=== PATIENT | male | born 1980 | race Caucasian/White ===

== ENCOUNTER 2023-03-11 17:04 | Outpatient (CLI) | payer MEDICAID, SELFPAY | END 2023-03-11 17:05 | disposition home or self-care (01) | LOC: AMB 03-13 10:32 | PROVIDERS: Visit Provider Family Medicine | DX: E11.649 Type 2 diabetes mellitus with hypoglycemia without coma (principal); R22.40 Localized swelling, mass and lump, unspecified lower limb | CPT/HCPCS: A0425; A0429 ==

== ENCOUNTER 2023-03-11 17:49 | Emergency (ER) | payer MEDICAID, SELFPAY ==
[2023-03-11] VITALS (42 sets, daily range): BP systolic 99–135; BP diastolic 32–55; PULSE 88–103; RESP 20; TEMP 36.6; O2SAT 97–100; BMI 70.6
--- NOTE | 2023-03-11 18:13 | ED_ITS ---
HPI - General Adult General Chief complaint: Extremity Pain/Injury, Lower <Imer Rodgers MD - Last Filed: 04/01/23 13:38> Stated complaint: swelling of legs <Imer Rodgers MD - Last Filed: 04/01/23 13:38> Time Seen by Provider: 03/11/23 18:13 <Imer Rodgers MD - Last Filed: 04/01/23 13:38> History of Present Illness HPI narrative: hx of fall today outside with bruise to L forearm, pt brought in by ems though due to mother c/o blood clot. pt has R lower extremity pain, redness, swelling x 1 month , worse the last 2 days . blood sugar was for ems, juice box given 43-year-old man presenting to the emergency department after a fall. Primary concern however seems to be marked increase in swelling over the last couple of days in the right lower extremity. He was helping his mom with some groceries today and over some unsteady grassy ground caused him to fall. Does not sounds are was a loss of consciousness. No complaint of head pain. No back or neck pain the from this event. Has had lower extremity swelling for some time. Over the last month of though it sounds like the right lower extremity has been little red and then worsened over the last couple of days with increased pain. He is not feeling short of breath. No chest pain. No fever. Does not typically use compression. <Imer Rodgers MD - Last Filed: 04/01/23 13:38> Related Data Home medications: Home Medications Medication Instructions Recorded Confirmed No Known Home Medications 03/11/23 03/11/23 <Imer Rodgers MD - Last Filed: 04/01/23 13:38> Allergies/adverse reactions: Allergies Allergy/AdvReac Type Severity Reaction Status Date / Time naproxen [From Aleve] Allergy Intermediate Verified 03/11/23 17:59 <Imer Rodgers MD - Last Filed: 04/01/23 13:38> Review of Systems Status of ROS: Reports: 6 or more systems reviewed and unremarkable except as noted in History and below <Imer Rodgers MD - Last Filed: 04/01/23 13:38> [facility] Medical History: Medical History (Updated 03/27/23 @ 00:00 by Background Daemon) Chronic kidney disease ?N18.9 - Chronic kidney disease, unspecified (ICD-10) Morbid obesity ?E66.01 - Morbid (severe) obesity due to excess calories (ICD-10) <Imer Rodgers MD - Last Filed: 04/01/23 13:38> Family History: Family History (Updated 03/12/23 @ 00:08 by Christoph Martin MD) Father Coronary artery disease Mother Diabetes Other Alcohol dependence <Imer Rodgers MD - Last Filed: 04/01/23 13:38> Social History: Social History (Updated 03/12/23 @ 00:09 by Christoph Martin MD) Narrative: Patient reports being currently unemployed. 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 He does not smoke. He rarely drinks alcohol. He does not use recreational drugs. [employer] is his mother. Code status is full. Smoking Status: Never smoker How often do you have a drink containing alcohol: never AUDIT-C Alcohol total score: 0 Non-prescribed substance use: denies use <Imer Rodgers MD - Last Filed: 04/01/23 13:38> Exam Narrative: Exam Narrative: Very pleasant. NAD. Maybe seems mildly anxious. Breathing easily. Fully alert. Cranial nerves 2-12 intact. Morbidly obese. There is of light abrasion at the olecranon process of the right elbow. Not actively bleeding. He is moving his upper extremities without difficulty. There is a quarter-size bruise also on the proximal forearm on the left. No p articular tenderness here either. Heart is tachycardic, regular rhythm. There appears to be a 1/6 mid systolic murmur notable at the right sternal border. He has not recall a murmur prior. Abdomen is obese soft not appreciably tender. I could not be sure that there are no masses but do not palpate anything. Examining again I see more edema and erythema and mild calor the left abdomen/pannus. There is not appear to be intertrigo. Lower extremities with severe edema bilaterally. Right is appreciably much more than the left with erythema diffusely over the right lower extremity. Posterior medial right upper thigh is starting to show subtle signs of evolving tension blister? Is tender to palpation over the proximal lower leg into the thigh. Mild calor generally <Imer Rodgers MD - Last Filed: 04/01/23 13:38> Const: Vital Signs, click to edit/add: Vital Signs - 24 hr 03/11/23 17:53 03/11/23 18:35 03/11/23 18:36 Temperature 97.9 F Pulse Rate 93 92 Pulse Rate [Pulse Oximeter] 102 H Respiratory Rate 20 Blood Pressure 108/37 L Blood Pressure [Ri ght Upper Arm] 135/45 L Pulse Oximetry 99 100 99 Oxygen Delivery Me thod Room Air 03/11/23 18:45 03/11/23 19:12 03/11/23 19:15 Temperature Pulse Rate 94 93 92 Pulse Rate [Pulse Oximeter] Respiratory Rate Blood Pressure Blood Pressure [Ri ght Upper Arm] Pulse Oximetry 100 100 99 Oxygen Delivery Me thod 03/11/23 19:30 03/11/23 19:33 03/11/23 19:45 Temperature Pulse Rate 90 93 88 Pulse Rate [Pulse Oximeter] Respiratory Rate Blood Pressure 113/36 L Blood Pressure [Ri ght Upper Arm] Pulse Oximetry 100 98 99 Oxygen Delivery Me thod 03/11/23 20:00 03/11/23 20:03 03/11/23 20:15 Temperature Pulse Rate 93 93 91 Pulse Rate [Pulse Oximeter] Respiratory Rate Blood Pressure 114/39 L Blood Pressure [Ri ght Upper Arm] Pulse Oximetry 98 99 98 Oxygen Delivery Me thod 03/11/23 20:30 03/11/23 20:32 03/11/23 20:45 Temperature Pulse Rate 91 91 96 Pulse Rate [Pulse Oximeter] Respiratory Rate Blood Pressure 111/33 L Blood Pressure [Ri ght Upper Arm] Pulse Oximetry 99 99 98 Oxygen Delivery Me thod 03/11/23 21:03 03/11/23 21:04 03/11/23 21:06 Temperature Pulse Rate 94 94 93 Pulse Rate [Pulse Oximeter] Respiratory Rate Blood Pressure 117/34 L 99/40 L Blood Pressure [Ri ght Upper Arm] Pulse Oximetry 98 99 99 Oxygen Delivery Me thod 03/11/23 21:09 03/11/23 21:13 03/11/23 21:15 Temperature Pulse Rate 97 98 94 Pulse Rate [Pulse Oximeter] Respiratory Rate Blood Pressure 101/34 L 108/40 L Blood Pressure [Ri ght Upper Arm] Pulse Oximetry 100 99 99 Oxygen Delivery Me thod 03/11/23 21:16 03/11/23 21:35 03/11/23 21:40 Temperature Pulse Rate 94 103 H Pulse Rate [Pulse Oximeter] Respiratory Rate Blood Pressure 108/34 L 131/55 L Blood Pressure [Ri ght Upper Arm] Pulse Oximetry 99 99 Oxygen Delivery Me thod 03/11/23 21:45 03/11/23 21:48 03/11/23 22:11 Temperature Pulse Rate 99 96 94 Pulse Rate [Pulse Oximeter] Respiratory Rate Blood Pressure 135/46 L Blood Pressure [Ri ght Upper Arm] Pulse Oximetry 100 99 98 Oxygen Delivery Me thod 03/11/23 22:15 03/11/23 22:20 03/11/23 22:30 Temperature Pulse Rate 97 95 93 Pulse Rate [Pulse Oximeter] Respiratory Rate Blood Pressure 104/40 L Blood Pressure [Ri ght Upper Arm] Pulse Oximetry 97 98 99 Oxygen Delivery Me thod 03/11/23 22:32 03/11/23 22:45 03/11/23 22:48 Temperature Pulse Rate 92 91 92 Pulse Rate [Pulse Oximeter] Respiratory Rate Blood Pressure 103/32 L 114/38 L Blood Pressure [Ri ght Upper Arm] Pulse Oximetry 99 98 99 Oxygen Delivery Me thod 03/11/23 23:00 03/11/23 23:03 03/11/23 23:04 Temperature Pulse Rate 93 96 95 Pulse Rate [Pulse Oximeter] Respiratory Rate Blood Pressure 115/36 L Blood Pressure [Ri ght Upper Arm] Pulse Oximetry 100 99 100 Oxygen Delivery Me thod 03/11/23 23:15 03/11/23 23:18 03/11/23 23:30 Temperature Pulse Rate 96 97 95 Pulse Rate [Pulse Oximeter] Respiratory Rate Blood Pressure 111/38 L Blood Pressure [Ri ght Upper Arm] Pulse Oximetry 100 97 98 Oxygen Delivery Me thod 03/11/23 23:33 03/11/23 23:45 03/11/23 23:48 Temperature Pulse Rate 98 95 97 Pulse Rate [Pulse Oximeter] Respiratory Rate Blood Pressure 127/44 L 104/36 L Blood Pressure [Ri ght Upper Arm] Pulse Oximetry 98 99 100 Oxygen Delivery Me thod 03/12/23 00:00 03/12/23 00:02 03/12/23 00:02 Temperature Pulse Rate 97 95 95 Pulse Rate [Pulse Oximeter] Respiratory Rate Blood Pressure 125/41 L 125/41 L Blood Pressure [Ri ght Upper Arm] Pulse Oximetry 99 98 98 Oxygen Delivery Me thod 03/12/23 00:02 03/12/23 00:02 03/12/23 00:15 Temperature Pulse Rate 95 95 94 Pulse Rate [Pulse Oximeter] Respiratory Rate Blood Pressure 125/41 L 125/41 L Blood Pressure [Ri ght Upper Arm] Pulse Oximetry 98 98 99 Oxygen Delivery Me thod 03/12/23 00:18 03/12/23 00:40 03/12/23 00:45 Temperature Pulse Rate 94 107 H 96 Pulse Rate [Pulse Oximeter] Respiratory Rate Blood Pressure 130/36 L Blood Pressure [Ri ght Upper Arm] Pulse Oximetry 98 96 99 Oxygen Delivery Me thod 03/12/23 00:48 03/12/23 01:00 03/12/23 01:03 Temperature Pulse Rate 96 93 97 Pulse Rate [Pulse Oximeter] Respiratory Rate Blood Pressure 133/47 L 108/43 L Blood Pressure [Ri ght Upper Arm] Pulse Oximetry 99 97 98 Oxygen Delivery Me thod 03/12/23 01:15 Temperature Pulse Rate 92 Pulse Rate [Pulse Oximeter] Respiratory Rate Blood Pressure Blood Pressure [Ri ght Upper Arm] Pulse Oximetry 98 Oxygen Delivery Me thod <Imer Rodgers MD - Last Filed: 04/01/23 13:38> Vital Signs, click to edit/add: Vital Signs - 24 hr 03/11/23 17:53 03/11/23 18:35 03/11/23 18:36 Temperature 97.9 F Pulse Rate 93 92 Pulse Rate [Pulse Oximeter] 102 H Respiratory Rate 20 Blood Pressure 108/37 L Blood Pressure [Ri ght Upper Arm] 135/45 L Pulse Oximetry 99 100 99 Oxygen Delivery Me thod Room Air 03/11/23 18:45 03/11/23 19:12 03/11/23 19:15 Temperature Pulse Rate 94 93 92 Pulse Rate [Pulse Oximeter] Respiratory Rate Blood Pressure Blood Pressure [Ri ght Upper Arm] Pulse Oximetry 100 100 99 Oxygen Delivery Me thod 03/11/23 19:30 03/11/23 19:33 03/11/23 19:45 Temperature Pulse Rate 90 93 88 Pulse Rate [Pulse Oximeter] Respiratory Rate Blood Pressure 113/36 L Blood Pressure [Ri ght Upper Arm] Pulse Oximetry 100 98 99 Oxygen Delivery Me thod 03/11/23 20:00 03/11/23 20:03 03/11/23 20:15 Temperature Pulse Rate 93 93 91 Pulse Rate [Pulse Oximeter] Respiratory Rate Blood Pressure 114/39 L Blood Pressure [Ri ght Upper Arm] Pulse Oximetry 98 99 98 Oxygen Delivery Me thod 03/11/23 20:30 03/11/23 20:32 03/11/23 20:45 Temperature Pulse Rate 91 91 96 Pulse Rate [Pulse Oximeter] Respiratory Rate Blood Pressure 111/33 L Blood Pressure [Ri ght Upper Arm] Pulse Oximetry 99 99 98 Oxygen Delivery Me thod 03/11/23 21:03 03/11/23 21:04 03/11/23 21:06 Temperature Pulse Rate 94 94 93 Pulse Rate [Pulse Oximeter] Respiratory Rate Blood Pressure 117/34 L 99/40 L Blood Pressure [Ri ght Upper Arm] Pulse Oximetry 98 99 99 Oxygen Delivery Me thod 03/11/23 21:09 03/11/23 21:13 03/11/23 21:15 Temperature Pulse Rate 97 98 94 Pulse Rate [Pulse Oximeter] Respiratory Rate Blood Pressure 101/34 L 108/40 L Blood Pressure [Ri ght Upper Arm] Pulse Oximetry 100 99 99 Oxygen Delivery Me thod 03/11/23 21:16 03/11/23 21:35 03/11/23 21:40 Temperature Pulse Rate 94 103 H Pulse Rate [Pulse Oximeter] Respiratory Rate Blood Pressure 108/34 L 131/55 L Blood Pressure [Ri ght Upper Arm] Pulse Oximetry 99 99 Oxygen Delivery Me thod 03/11/23 21:45 03/11/23 21:48 03/11/23 22:11 Temperature Pulse Rate 99 96 94 Pulse Rate [Pulse Oximeter] Respiratory Rate Blood Pressure 135/46 L Blood Pressure [Ri ght Upper Arm] Pulse Oximetry 100 99 98 Oxygen Delivery Me thod 03/11/23 22:15 03/11/23 22:20 03/11/23 22:30 Temperature Pulse Rate 97 95 93 Pulse Rate [Pulse Oximeter] Respiratory Rate Blood Pressure 104/40 L Blood Pressure [Ri ght Upper Arm] Pulse Oximetry 97 98 99 Oxygen Delivery Me thod 03/11/23 22:32 03/11/23 22:45 03/11/23 22:48 Temperature Pulse Rate 92 91 92 Pulse Rate [Pulse Oximeter] Respiratory Rate Blood Pressure 103/32 L 114/38 L Blood Pressure [Ri ght Upper Arm] Pulse Oximetry 99 98 99 Oxygen Delivery Me thod 03/11/23 23:00 03/11/23 23:03 03/11/23 23:04 Temperature Pulse Rate 93 96 95 Pulse Rate [Pulse Oximeter] Respiratory Rate Blood Pressure 115/36 L Blood Pressure [Ri ght Upper Arm] Pulse Oximetry 100 99 100 Oxygen Delivery Me thod 03/11/23 23:15 03/11/23 23:18 03/11/23 23:30 Temperature Pulse Rate 96 97 95 Pulse Rate [Pulse Oximeter] Respiratory Rate Blood Pressure 111/38 L Blood Pressure [Ri ght Upper Arm] Pulse Oximetry 100 97 98 Oxygen Delivery Me thod 03/11/23 23:33 03/11/23 23:45 03/11/23 23:48 Temperature Pulse Rate 98 95 97 Pulse Rate [Pulse Oximeter] Respiratory Rate Blood Pressure 127/44 L 104/36 L Blood Pressure [Ri ght Upper Arm] Pulse Oximetry 98 99 100 Oxygen Delivery Me thod 03/12/23 00:00 03/12/23 00:02 03/12/23 00:02 Temperature Pulse Rate 97 95 95 Pulse Rate [Pulse Oximeter] Respiratory Rate Blood Pressure 125/41 L 125/41 L Blood Pressure [Ri ght Upper Arm] Pulse Oximetry 99 98 98 Oxygen Delivery Me thod 03/12/23 00:02 03/12/23 00:02 03/12/23 00:15 Temperature Pulse Rate 95 95 94 Pulse Rate [Pulse Oximeter] Respiratory Rate Blood Pressure 125/41 L 125/41 L Blood Pressure [Ri ght Upper Arm] Pulse Oximetry 98 98 99 Oxygen Delivery Me thod 03/12/23 00:18 03/12/23 00:40 03/12/23 00:45 Temperature Pulse Rate 94 107 H 96 Pulse Rate [Pulse Oximeter] Respiratory Rate Blood Pressure 130/36 L Blood Pressure [Ri ght Upper Arm] Pulse Oximetry 98 96 99 Oxygen Delivery Me thod 03/12/23 00:48 03/12/23 01:00 03/12/23 01:03 Temperature Pulse Rate 96 93 97 Pulse Rate [Pulse Oximeter] Respiratory Rate Blood Pressure 133/47 L 108/43 L Blood Pressure [Ri ght Upper Arm] Pulse Oximetry 99 97 98 Oxygen Delivery Me thod 03/12/23 01:15 Temperature Pulse Rate 92 Pulse Rate [Pulse Oximeter] Respiratory Rate Blood Pressure Blood Pressure [Ri ght Upper Arm] Pulse Oximetry 98 Oxygen Delivery Me thod <Constance Soliman MD - Last Filed: 03/12/23 03:13> Documenting provider has reviewed patient's vital signs: yes <Imer Rodgers MD - Last Filed: 04/01/23 13:38> Course Reevaluation(s) Time of Reevaluation #1: 03:10 <Constance Soliman MD - Last Filed: 03/12/23 03:13> Reevaluation #1: Transferred without complication to [facility] ICU. No changes to plan of care previously documented by Dr. Martinez. Care assumed while awaiting transfer only. - Dr. Soliman <Constance Soliman MD - Last Filed: 03/12/23 03:13> Vital Signs Vital signs: Initial Vital Signs Temperature 97.9 F 03/11/23 17:53 Temperature Source Temporal Artery Scan 03/11/23 17:53 Pulse Rate 102 H 03/11/23 17:53 Respiratory Rate 20 03/11/23 17:53 Blood Pressure 135/45 L 03/11/23 17:53 Blood Pressure Mean 75 03/11/23 17:53 Blood Pressure Position Supine 03/11/23 17:53 Pulse Oximetry 99 03/11/23 17:53 Oxygen Delivery Method Room Air 03/11/23 17:53 Vital Signs Temperature 97.9 F 03/11/23 17:53 Pulse Rate 102 H 03/11/23 17:53 Respiratory Rate 20 03/11/23 17:53 Blood Pressure 135/45 L 03/11/23 17:53 Pulse Oximetry 99 03/11/23 17:53 Oxygen Delivery Method Room Air 03/11/23 17:53 Temperature 97.9 F 03/11/23 17:53 Pulse Rate 92 03/12/23 01:15 Respiratory Rate 20 03/11/23 17:53 Blood Pressure 108/43 L 03/12/23 01:03 Pulse Oximetry 98 03/12/23 01:15 Oxygen Delivery Method Room Air 03/11/23 17:53 <Imer Rodgers MD - Last Filed: 04/01/23 13:38> Initial Vital Signs Temperature 97.9 F 03/11/23 17:53 Temperature Source Temporal Artery Scan 03/11/23 17:53 Pulse Rate 102 H 03/11/23 17:53 Respiratory Rate 20 03/11/23 17:53 Blood Pressure 135/45 L 03/11/23 17:53 Blood Pressure Mean 75 03/11/23 17:53 Blood Pressure Position Supine 03/11/23 17:53 Pulse Oximetry 99 03/11/23 17:53 Oxygen Delivery Method Room Air 03/11/23 17:53 Vital Signs Temperature 97.9 F 03/11/23 17:53 Pulse Rate 102 H 03/11/23 17:53 Respiratory Rate 20 03/11/23 17:53 Blood Pressure 135/45 L 03/11/23 17:53 Pulse Oximetry 99 03/11/23 17:53 Oxygen Delivery Method Room Air 03/11/23 17:53 Temperature 97.9 F 03/11/23 17:53 Pulse Rate 92 03/12/23 01:15 Respiratory Rate 20 03/11/23 17:53 Blood Pressure 108/43 L 03/12/23 01:03 Pulse Oximetry 98 03/12/23 01:15 Oxygen Delivery Method Room Air 03/11/23 17:53 <Constance Soliman MD - Last Filed: 03/12/23 03:13> Medical Decision Making MDM Narrative Medical decision making narrative: Unclear of tachycardia is chronic and related to potentially body habitus or representing newer disease. There may be cellulitis here. Will need to be at least evaluated for thrombus in the right lower extremity. Does not seem as though any other imaging would be necessary for this fall today. Labs pending as well Initiating on normal saline. White count is just shy of 20,000. On reassessment is no longer tachycardic. Creatinine returns at 2.4. Sodium of 125. Glucose 53. Ultrasound of bilateral lower extremities are without evidence of DVT. Speaking to the fisher terrapin she also noted though significant edema in the skin of the right leg. Mr. Martin meets criteria for sepsis. Source I presume is cellulitis at this point. Possibly panniculitis. Blood cultures are pending. Will discuss with hospitalist antibiotic choice. I think we can actually focus this on likely skin source. Recheck blood pressures seem to be softening somewhat. Strangely low diastolic generally. Systolic has been consistently since 2nd measurement at around 108. Have changed cuff sizes as well. Antibiotics will be per sepsis protocol ProBNP at 1090. I would have some concern of cardiac reserve. Recheck blood sugar after crackers at 51. Given juice box. Quite alert. Seems comfortable. Eating more. Monitor closely. Anticipating admission here however concern is remain related to morbid obesity. Lactate after 1 L of fluids 8.6. Will also look for tertiary hospital. Dr. Martin has been involved in cares anticipating admission here due to lack of availability elsewhere. Continued concerning labs with elevated AST and elevated bilirubin. Elevated troponin. 2 L. Rechecking lactate and blood sugar. 2311 -- I have been speaking with Dr. Wang and has been accepted to [facility] on a wait. He likely will need cares in vascular clinic in the future. <Imer Rodgers MD - Last Filed: 04/01/23 13:38> Lab Data Lab results reviewed: Yes I reviewed the patient's lab results <Imer Rodgers MD - Last Filed: 04/01/23 13:38> Lab results narrative: Acute renal failure, marked leukocytosis, markedly elevated lactate, elevated absolute neutrophil count, hypoglycemia, elevated troponin and CPK consistent with sepsis. Repeat lactate did not improve significantly after 2 L of IV fluid, starting 3 L. <Constance Soliman MD - Last Filed: 03/12/23 03:13> Labs: Lab Results 03/11/23 03/11/23 03/11/23 Range/Units 19:00 19:00 21:20 WBC 19.82 H (4.50-11.00) K/uL RBC 3.66 L (4.30-5.90) m/uL Hgb 12.7 L (13.5-17.5) gm/dL Hct 39.2 (37.0-53.0) % MCV 107 H (80-100) fL MCH 35 H (26-34) pg MCHC 32 (32-36) gm/dL RDW Coeff of Nessa 15.3 (11.5-15.5) % Plt Count 116 L (140-440) K/uL Neut % (Auto) 84.2 H (42.0-72.0) % Lymph % (Auto) 7.8 L (20-44) % [place] % (Auto) 5.5 (0.0-11.0) % Eos % (Auto) 0.5 (0.0-7.0) % Baso % (Auto) 0.2 (0.0-3.0) % Neut # (Auto) 16.70 H (1.7-7.0) K/uL Lymph # (Auto) 1.50 (0.90-2.90) K/uL [place] # (Auto) 1.10 H (0.00-0.90) K/UL Eos # (Auto) 0.10 (0.00-0.50) K/uL Baso # (Auto) 0.00 (0.00-0.30) K/uL Abs Immat Gran (auto) 0.40 H (0.00-0.30) K/uL Imm/Tot Granulo (auto) 1.8 % D-Dimer Quant (PE/DVT) 3.69 H (0.00-0.50) ug/ml Sodium 125 L (135-149) mmol/L Potassium 4.3 (3.6-5.1) mmol/L Chloride 93 L (96-114) mmol/L Carbon Dioxide 13 L (20-32) mmol/L Anion Gap 19 H (7-15) mEq/L BUN 19 (5-24) mg/dL Creatinine 2.4 H (0.5-1.5) mg/dL Estimated Creat Clear 47.09 Estimated GFR 34 ml/min Glucose 53 L (60-115) mg/dL Hemoglobin A1c 5.15 (0-5.6) % Lactate 8.6 H* (0.5-1.9) mmol/L Calcium 7.7 L (8.4-10.6) mg/dL Magnesium 1.7 (1.5-2.6) mg/dL Total Bilirubin 9.1 H (0.1-1.5) mg/dL Direct Bilirubin 5.3 H (0.0-0.5) mg/dL AST 141 H (12-35) U/L ALT 49 (4-50) U/L Alkaline Phosphatase 179 H (40-150) U/L Total Creatine Kinase 641 H (54-186) U/L Troponin I 0.34 H* (0.01-0.04) ng/mL C-Reactive Protein 8.4 H (0.5-1.0) mg/dL NT-Pro-B Natriuret Pep 1090 Cancelled pg/mL Total Protein 6.6 (6.0-8.3) g/dL Albumin 2.4 L (3.3-5.0) g/dL Procalcitonin 4.14 H (<0.50) ng/mL Urine Color (Yellow) Urine Appearance (Clear) Urine pH (5.0-8.5) Ur Specific [place] (1.000-1.030) Urine Protein (Negative) Urine Glucose (UA) (Negative) Urine Ketones (Negative) Urine Blood (Negative) Urine Nitrite (Negative) Urine Bilirubin (Negative) Urine Urobilinogen (0.2-1.0) Ur Leukocyte Esterase (Negative) Urine RBC (0-2) Urine WBC (0-5) Ur Squamous Epith Cells (None-Few) Amorphous Sediment (None) Urine Bacteria (None) Hyaline Casts (None-Few) Lab Acknowledgement 03/11/23 03/11/23 03/11/23 Range/Units 21:34 22:22 22:53 WBC (4.50-11.00) K/uL RBC (4.30-5.90) m/uL Hgb (13.5-17.5) gm/dL Hct (37.0-53.0) % MCV (80-100) fL MCH (26-34) pg MCHC (32-36) gm/dL RDW Coeff of Nessa (11.5-15.5) % Plt Count (140-440) K/uL Neut % (Auto) (42.0-72.0) % Lymph % (Auto) (20-44) % [place] % (Auto) (0.0-11.0) % Eos % (Auto) (0.0-7.0) % Baso % (Auto) (0.0-3.0) % Neut # (Auto) (1.7-7.0) K/uL Lymph # (Auto) (0.90-2.90) K/uL [place] # (Auto) (0.00-0.90) K/UL Eos # (Auto) (0.00-0.50) K/uL Baso # (Auto) (0.00-0.30) K/uL Abs Immat Gran (auto) (0.00-0.30) K/uL Imm/Tot Granulo (auto) % D-Dimer Quant (PE/DVT) (0.00-0.50) ug/ml Sodium (135-149) mmol/L Potassium (3.6-5.1) mmol/L Chloride (96-114) mmol/L Carbon Dioxide (20-32) mmol/L Anion Gap (7-15) mEq/L BUN (5-24) mg/dL Creatinine (0.5-1.5) mg/dL Estimated Creat Clear Estimated GFR ml/min Glucose (60-115) mg/dL Hemoglobin A1c (0-5.6) % Lactate (0.5-1.9) mmol/L Calcium (8.4-10.6) mg/dL Magnesium (1.5-2.6) mg/dL Total Bilirubin (0.1-1.5) mg/dL Direct Bilirubin (0.0-0.5) mg/dL AST (12-35) U/L ALT (4-50) U/L Alkaline Phosphatase (40-150) U/L Total Creatine Kinase (54-186) U/L Troponin I (0.01-0.04) ng/mL C-Reactive Protein (0.5-1.0) mg/dL NT-Pro-B Natriuret Pep pg/mL Total Protein (6.0-8.3) g/dL Albumin (3.3-5.0) g/dL Procalcitonin (<0.50) ng/mL Urine Color Red A (Yellow) Urine Appearance Slightly Cloudy A (Clear) Urine pH 5.0 (5.0-8.5) Ur Specific [place] >= 1.030 (1.000-1.030) Urine Protein 2+ A (Negative) Urine Glucose (UA) Negative (Negative) Urine Ketones Trace A (Negative) Urine Blood Trace-lysed A (Negative) Urine Nitrite Negative (Negative) Urine Bilirubin 3+ A (Negative) Urine Urobilinogen 1.0 (0.2-1.0) Ur Leukocyte Esterase Negative (Negative) Urine RBC 2-5 A (0-2) Urine WBC 5-10 A (0-5) Ur Squamous Epith Cells Many A (None-Few) Amorphous Sediment Moderate A (None) Urine Bacteria Many A (None) Hyaline Casts Many A (None-Few) Lab Acknowledgement Test Added Test Added 03/12/23 Range/Units 00:20 WBC (4.50-11.00) K/uL RBC (4.30-5.90) m/uL Hgb (13.5-17.5) gm/dL Hct (37.0-53.0) % MCV (80-100) fL MCH (26-34) pg MCHC (32-36) gm/dL RDW Coeff of Nessa (11.5-15.5) % Plt Count (140-440) K/uL Neut % (Auto) (42.0-72.0) % Lymph % (Auto) (20-44) % [place] % (Auto) (0.0-11.0) % Eos % (Auto) (0.0-7.0) % Baso % (Auto) (0.0-3.0) % Neut # (Auto) (1.7-7.0) K/uL Lymph # (Auto) (0.90-2.90) K/uL [place] # (Auto) (0.00-0.90) K/UL Eos # (Auto) (0.00-0.50) K/uL Baso # (Auto) (0.00-0.30) K/uL Abs Immat Gran (auto) (0.00-0.30) K/uL Imm/Tot Granulo (auto) % D-Dimer Quant (PE/DVT) (0.00-0.50) ug/ml Sodium (135-149) mmol/L Potassium (3.6-5.1) mmol/L Chloride (96-114) mmol/L Carbon Dioxide (20-32) mmol/L Anion Gap (7-15) mEq/L BUN (5-24) mg/dL Creatinine (0.5-1.5) mg/dL Estimated Creat Clear Estimated GFR ml/min Glucose (60-115) mg/dL Hemoglobin A1c (0-5.6) % Lactate 8.6 H* (0.5-1.9) mmol/L Calcium (8.4-10.6) mg/dL Magnesium (1.5-2.6) mg/dL Total Bilirubin (0.1-1.5) mg/dL Direct Bilirubin (0.0-0.5) mg/dL AST (12-35) U/L ALT (4-50) U/L Alkaline Phosphatase (40-150) U/L Total Creatine Kinase (54-186) U/L Troponin I (0.01-0.04) ng/mL C-Reactive Protein (0.5-1.0) mg/dL NT-Pro-B Natriuret Pep pg/mL Total Protein (6.0-8.3) g/dL Albumin (3.3-5.0) g/dL Procalcitonin (<0.50) ng/mL Urine Color (Yellow) Urine Appearance (Clear) Urine pH (5.0-8.5) Ur Specific [place] (1.000-1.030) Urine Protein (Negative) Urine Glucose (UA) (Negative) Urine Ketones (Negative) Urine Blood (Negative) Urine Nitrite (Negative) Urine Bilirubin (Negative) Urine Urobilinogen (0.2-1.0) Ur Leukocyte Esterase (Negative) Urine RBC (0-2) Urine WBC (0-5) Ur Squamous Epith Cells (None-Few) Amorphous Sediment (None) Urine Bacteria (None) Hyaline Casts (None-Few) Lab Acknowledgement <Imer Rodgers MD - Last Filed: 04/01/23 13:38> Lab Results 03/11/23 03/11/23 03/11/23 Range/Units 19:00 19:00 21:20 WBC 19.82 H (4.50-11.00) K/uL RBC 3.66 L (4.30-5.90) m/uL Hgb 12.7 L (13.5-17.5) gm/dL Hct 39.2 (37.0-53.0) % MCV 107 H (80-100) fL MCH 35 H (26-34) pg MCHC 32 (32-36) gm/dL RDW Coeff of Nessa 15.3 (11.5-15.5) % Plt Count 116 L (140-440) K/uL Neut % (Auto) 84.2 H (42.0-72.0) % Lymph % (Auto) 7.8 L (20-44) % [place] % (Auto) 5.5 (0.0-11.0) % Eos % (Auto) 0.5 (0.0-7.0) % Baso % (Auto) 0.2 (0.0-3.0) % Neut # (Auto) 16.70 H (1.7-7.0) K/uL Lymph # (Auto) 1.50 (0.90-2.90) K/uL [place] # (Auto) 1.10 H (0.00-0.90) K/UL Eos # (Auto) 0.10 (0.00-0.50) K/uL Baso # (Auto) 0.00 (0.00-0.30) K/uL Abs Immat Gran (auto) 0.40 H (0.00-0.30) K/uL Imm/Tot Granulo (auto) 1.8 % D-Dimer Quant (PE/DVT) 3.69 H (0.00-0.50) ug/ml Sodium 125 L (135-149) mmol/L Potassium 4.3 (3.6-5.1) mmol/L Chloride 93 L (96-114) mmol/L Carbon Dioxide 13 L (20-32) mmol/L Anion Gap 19 H (7-15) mEq/L BUN 19 (5-24) mg/dL Creatinine 2.4 H (0.5-1.5) mg/dL Estimated Creat Clear 47.09 Estimated GFR 34 ml/min Glucose 53 L (60-115) mg/dL Hemoglobin A1c 5.15 (0-5.6) % Lactate 8.6 H* (0.5-1.9) mmol/L Calcium 7.7 L (8.4-10.6) mg/dL Magnesium 1.7 (1.5-2.6) mg/dL Total Bilirubin 9.1 H (0.1-1.5) mg/dL Direct Bilirubin 5.3 H (0.0-0.5) mg/dL AST 141 H (12-35) U/L ALT 49 (4-50) U/L Alkaline Phosphatase 179 H (40-150) U/L Total Creatine Kinase 641 H (54-186) U/L Troponin I 0.34 H* (0.01-0.04) ng/mL C-Reactive Protein 8.4 H (0.5-1.0) mg/dL NT-Pro-B Natriuret Pep 1090 Cancelled pg/mL Total Protein 6.6 (6.0-8.3) g/dL Albumin 2.4 L (3.3-5.0) g/dL Procalcitonin 4.14 H (<0.50) ng/mL Urine Color (Yellow) Urine Appearance (Clear) Urine pH (5.0-8.5) Ur Specific [place] (1.000-1.030) Urine Protein (Negative) Urine Glucose (UA) (Negative) Urine Ketones (Negative) Urine Blood (Negative) Urine Nitrite (Negative) Urine Bilirubin (Negative) Urine Urobilinogen (0.2-1.0) Ur Leukocyte Esterase (Negative) Urine RBC (0-2) Urine WBC (0-5) Ur Squamous Epith Cells (None-Few) Amorphous Sediment (None) Urine Bacteria (None) Hyaline Casts (None-Few) Lab Acknowledgement 03/11/23 03/11/23 03/11/23 Range/Units 21:34 22:22 22:53 WBC (4.50-11.00) K/uL RBC (4.30-5.90) m/uL Hgb (13.5-17.5) gm/dL Hct (37.0-53.0) % MCV (80-100) fL MCH (26-34) pg MCHC (32-36) gm/dL RDW Coeff of [place] (11.5-15.5) % Plt Count (140-440) K/uL Neut % (Auto) (42.0-72.0) % Lymph % (Auto) (20-44) % [place] % (Auto) (0.0-11.0) % Eos % (Auto) (0.0-7.0) % Baso % (Auto) (0.0-3.0) % Neut # (Auto) (1.7-7.0) K/uL Lymph # (Auto) (0.90-2.90) K/uL [place] # (Auto) (0.00-0.90) K/UL Eos # (Auto) (0.00-0.50) K/uL Baso # (Auto) (0.00-0.30) K/uL Abs Immat Gran (auto) (0.00-0.30) K/uL Imm/Tot Granulo (auto) % D-Dimer Quant (PE/DVT) (0.00-0.50) ug/ml Sodium (135-149) mmol/L Potassium (3.6-5.1) mmol/L Chloride (96-114) mmol/L Carbon Dioxide (20-32) mmol/L Anion Gap (7-15) mEq/L BUN (5-24) mg/dL Creatinine (0.5-1.5) mg/dL Estimated Creat Clear Estimated GFR ml/min Glucose (60-115) mg/dL Hemoglobin A1c (0-5.6) % Lactate (0.5-1.9) mmol/L Calcium (8.4-10.6) mg/dL Magnesium (1.5-2.6) mg/dL Total Bilirubin (0.1-1.5) mg/dL Direct Bilirubin (0.0-0.5) mg/dL AST (12-35) U/L ALT (4-50) U/L Alkaline Phosphatase (40-150) U/L Total Creatine Kinase (54-186) U/L Troponin I (0.01-0.04) ng/mL C-Reactive Protein (0.5-1.0) mg/dL NT-Pro-B Natriuret Pep pg/mL Total Protein (6.0-8.3) g/dL Albumin (3.3-5.0) g/dL Procalcitonin (<0.50) ng/mL Urine Color Red A (Yellow) Urine Appearance Slightly Cloudy A (Clear) Urine pH 5.0 (5.0-8.5) Ur Specific [place] >= 1.030 (1.000-1.030) Urine Protein 2+ A (Negative) Urine Glucose (UA) Negative (Negative) Urine Ketones Trace A (Negative) Urine Blood Trace-lysed A (Negative) Urine Nitrite Negative (Negative) Urine Bilirubin 3+ A (Negative) Urine Urobilinogen 1.0 (0.2-1.0) Ur Leukocyte Esterase Negative (Negative) Urine RBC 2-5 A (0-2) Urine WBC 5-10 A (0-5) Ur Squamous Epith Cells Many A (None-Few) Amorphous Sediment Moderate A (None) Urine Bacteria Many A (None) Hyaline Casts Many A (None-Few) Lab Acknowledgement Test Added Test Added 03/12/23 Range/Units 00:20 WBC (4.50-11.00) K/uL RBC (4.30-5.90) m/uL Hgb (13.5-17.5) gm/dL Hct (37.0-53.0) % MCV (80-100) fL MCH (26-34) pg MCHC (32-36) gm/dL RDW Coeff of [place] (11.5-15.5) % Plt Count (140-440) K/uL Neut % (Auto) (42.0-72.0) % Lymph % (Auto) (20-44) % [place] % (Auto) (0.0-11.0) % Eos % (Auto) (0.0-7.0) % Baso % (Auto) (0.0-3.0) % Neut # (Auto) (1.7-7.0) K/uL Lymph # (Auto) (0.90-2.90) K/uL [place] # (Auto) (0.00-0.90) K/UL Eos # (Auto) (0.00-0.50) K/uL Baso # (Auto) (0.00-0.30) K/uL Abs Immat Gran (auto) (0.00-0.30) K/uL Imm/Tot Granulo (auto) % D-Dimer Quant (PE/DVT) (0.00-0.50) ug/ml Sodium (135-149) mmol/L Potassium (3.6-5.1) mmol/L Chloride (96-114) mmol/L Carbon Dioxide (20-32) mmol/L Anion Gap (7-15) mEq/L BUN (5-24) mg/dL Creatinine (0.5-1.5) mg/dL Estimated Creat Clear Estimated GFR ml/min Glucose (60-115) mg/dL Hemoglobin A1c (0-5.6) % Lactate 8.6 H* (0.5-1.9) mmol/L Calcium (8.4-10.6) mg/dL Magnesium (1.5-2.6) mg/dL Total Bilirubin (0.1-1.5) mg/dL Direct Bilirubin (0.0-0.5) mg/dL AST (12-35) U/L ALT (4-50) U/L Alkaline Phosphatase (40-150) U/L Total Creatine Kinase (54-186) U/L Troponin I (0.01-0.04) ng/mL C-Reactive Protein (0.5-1.0) mg/dL NT-Pro-B Natriuret Pep pg/mL Total Protein (6.0-8.3) g/dL Albumin (3.3-5.0) g/dL Procalcitonin (<0.50) ng/mL Urine Color (Yellow) Urine Appearance (Clear) Urine pH (5.0-8.5) Ur Specific [place] (1.000-1.030) Urine Protein (Negative) Urine Glucose (UA) (Negative) Urine Ketones (Negative) Urine Blood (Negative) Urine Nitrite (Negative) Urine Bilirubin (Negative) Urine Urobilinogen (0.2-1.0) Ur Leukocyte Esterase (Negative) Urine RBC (0-2) Urine WBC (0-5) Ur Squamous Epith Cells (None-Few) Amorphous Sediment (None) Urine Bacteria (None) Hyaline Casts (None-Few) Lab Acknowledgement <Constance Soliman MD - Last Filed: 03/12/23 03:13> ECG Data Attestation: I personally reviewed and interpreted this ECG as follows: (EKG normal sinus rate of 87. Collected after some IV hydration.) <Imer Rodgers MD - Last Filed: 04/01/23 13:38> Critical Care Time Critical Care Time Critical Care Time: Yes Attestation: The patient required my highest level preparedness to intervene emergently and I personally spent this critical care time directly and personally managing the patient. This critical care time included: Obtaining a history; Examining the patient; Pulse oximetry; Ordering and reviewing of studies; Arranging urgent treatment with development of a management plan; Evaluation of patients response to treatment; Frequent reassessment discussions with other providers. This critical care time was performed to assess and manage the high probability of imminent life-threatening deterioration that could result in multiorgan failure. It was exclusive of separate billable procedures and treating other patients and teaching time. <Imer Rodgers MD - Last Filed: 04/01/23 13:38> Total Critical Care Time in Minutes: 75 <Imer Rodgers MD - Last Filed: 04/01/23 13:38> Discharge Plan Discharge Clinical Impression: Cellulitis, Sepsis <Imer Rodgers MD - Last Filed: 04/01/23 13:38> Patient Disposition: [facility] <Imer Rodgers MD - Last Filed: 04/01/23 13:38> Discharge Location: [facility] <Imer Rodgers MD - Last Filed: 04/01/23 13:38> Condition: Critical <Imer Rodgers MD - Last Filed: 04/01/23 13:38> Prescriptions: No Action No Known Home Medications <Imer Rodgers MD - Last Filed: 04/01/23 13:38> Stand Alone Forms: MyHealth Info Instructions <Imer Rodgers MD - Last Filed: 04/01/23 13:38>
--- NOTE | 2023-03-11 18:27 | CRLHL7_ITS ---
For Patients: As a result of the Century Cures Act, medical imaging exams and procedure reports are released immediately into your electronic medical record. You may view this report before your referring provider. If you have questions, please contact your health care provider. INDICATION: Leg pain and swelling. TECHNIQUE: Ultrasound venous duplex bilateral lower extremity. Compression venous exam was performed using rogers-scale, color Doppler, and spectral Doppler analysis. COMPARISON: None. FINDINGS: Deep veins: Sonographic imaging demonstrates the bilateral common femoral, deep femoral, superficial femoral, popliteal, posterior tibial, and peroneal veins to be fully compressible with normal color Doppler blood flow. Superficial veins: Greater saphenous veins are fully compressible. No popliteal cyst. IMPRESSION: No deep venous thrombosis in the evaluated veins of the bilateral lower extremities. Dictated by Miguel Fox MD @ 03/11/2023 8:30:52 PM (Electronically Signed)
[2023-03-11 19:22] LABS: Basophils Percent Auto 0.2 % (0.0-3.0); Eosinophils Percent Auto 0.5 % (0.0-7.0); Hematocrit 39.2 % (37.0-53.0); Hemoglobin* 12.7 gm/dL (13.5-17.5); Immature Granulocytes Pct Auto 1.8 %; Lymphocytes Percent Auto 7.8 % (20-44); Mean Corpuscular HGB Conc 32 gm/dL (32-36); Mean Corpuscular Hemoglobin 35 pg (26-34); Mean Corpuscular Volume 107 fL (80-100); Monocytes Percent Auto 5.5 % (0.0-11.0); Neutrophils Percent Auto 84.2 % (42.0-72.0); Platelet Count* 116 K/uL (140-440); RDW Coefficient of Variation % 15.3 % (11.5-15.5); Red Blood Count 3.66 m/uL (4.30-5.90); White Blood Count* 19.82 K/uL (4.50-11.00)
[2023-03-11 19:23] LABS: Slide Review Reflex No
[2023-03-11 19:29] LABS: D Dimer Quantitative* 3.69 ug/ml (0.00-0.50)
[2023-03-11 19:48] LABS: Potassium* 4.3 mmol/L (3.6-5.1); Sodium* 125 mmol/L (135-149)
[2023-03-11 19:49] LABS: Anion Gap 19 mEq/L (7-15); Blood Urea Nitrogen* 19 mg/dL (5-24); Calcium* 7.7 mg/dL (8.4-10.6); Carbon Dioxide* 13 mmol/L (20-32); Chloride* 93 mmol/L (96-114); Creatinine* 2.4 mg/dL (0.5-1.5); Est. Creatinine Clearance* 47.09; Estimated Glomerular Filt Rate 34 ml/min; Glucose* 53 mg/dL (60-115)
[2023-03-11] MEDS: 0.9 % SODIUM CHLORIDE 1000 ml 1,000 ML IV ×2 (19:59→21:42)
[2023-03-11 20:30] LABS: C Reactive Protein* 8.4 mg/dL (0.5-1.0)
[2023-03-11 20:32] LABS: NT Pro B Type NatriureticPept* 1090 pg/mL
[2023-03-11 21:34] LABS: Lactate* 8.6 mmol/L (0.5-1.9)
--- NOTE | 2023-03-11 21:37 | CRLHL7_ITS ---
For Patients: As a result of the Cures Act, medical imaging exams and procedure reports are released immediately into your electronic medical record. You may view this report before your referring provider. If you have questions, please contact your health care provider. INDICATION: Sepsis. TECHNIQUE: Chest 1 views. COMPARISON: None. FINDINGS: Cardiovascular and mediastinum: Cardiomediastinal silhouette is enlarged. Lungs and pleural spaces: Low lung volumes. Lungs are clear. No dense consolidations. No sign of pleural effusion. No pneumothorax. Bones and soft tissues: No significant findings. IMPRESSION: No acute cardiopulmonary process identified. Dictated by Anita Valle MD @ 03/11/2023 10:10:31 PM (Electronically Signed)
[2023-03-11] MEDS: lidocaine HCL 2 % JELLY (TOP) STERILE 6 ML UR (22:00)
[2023-03-11 22:21] LABS: Albumin* 2.4 g/dL (3.3-5.0)
[2023-03-11 22:24] LABS: Alanine Aminotransferase* 49 U/L (4-50); Alkaline Phosphatase* 179 U/L (40-150); Aspartate Amino Transferase* 141 U/L (12-35); Bilirubin Direct* 5.3 mg/dL (0.0-0.5); Bilirubin Total* 9.1 mg/dL (0.1-1.5); Magnesium* 1.7 mg/dL (1.5-2.6); Total Protein* 6.6 g/dL (6.0-8.3)
--- NOTE | 2023-03-11 22:27 | ED.NURSE ---
Blood sugar 62, hospitalist updated.
[2023-03-11 22:29] LABS: Hemoglobin A1C* 5.15 % (0-5.6)
[2023-03-11 22:32] LABS: Bilirubin Urine 3+ (Negative); Blood Urine Trace-lysed (Negative); Glucose Urine Negative (Negative); Ketones Urine Trace (Negative); Leukocyte Esterase Urine Negative (Negative); Nitrite Urine Negative (Negative); Protein Urine 2+ (Negative); Specific Gravity Urine >= 1.030 (1.000-1.030)
[2023-03-11] MEDS: 5 % DEXTROSE/0.9% SOD CHLORIDE 1,000 ML 500 ML IV (22:33)
[2023-03-11 22:37] LABS: Appearance Urine Slightly Cloudy (Clear); Color Urine Red (Yellow)
[2023-03-11 22:41] LABS: Procalcitonin* 4.14 ng/mL (<0.50)
[2023-03-11] MEDS: PIPERACILLIN/TAZOBACTAM 4.5 GM in 0.9 % SODIUM CHLORIDE Mini-bag 100 ML IVPB (22:45)
[2023-03-11] MEDS: HYDROCORTISONE SOD SUCCINATE 50 MG/ML inj 100 MG IVP (22:45)
[2023-03-11 23:00] LABS: Troponin I* 0.34 ng/mL (0.01-0.04)
[2023-03-11 23:01] LABS: Amorphous Sediment Urine Moderate; Bacteria Urine Many; Hyaline Casts Urine Many (None-Few); Squamous Epithelial Cell Urine Many (None-Few)
[2023-03-11 23:15] LABS: Creatine Kinase* 641 U/L (54-186)
[2023-03-12] VITALS (10 sets, daily range): BP systolic 108–133; BP diastolic 36–47; PULSE 92–107; O2SAT 96–99
--- NOTE | 2023-03-12 00:04 | PM.IMCN1 ---
Date of Consult Consult date: 03/11/23 Requesting Physician: Other (Emergency department) Primary Care Provider: Not a Local Provider Consult Narrative Reason for consult: Sepsis Narrative: Iván Martin is a 43 year old male with morbid obesity presented to the emergency department after falling at home and unable to get. He reports that he has not been feeling quite right for the last few days but denies any specific symptoms such as fever, cough, chest pain, shortness of breath, nausea, vomiting, abdominal pain, diarrhea, constipation, urinary problems. He has noted some swelling and discomfort in both legs, right more than left. He reports no medical problems other than his obesity. He has not had regular medical care. Reports no previous surgeries. No previous hospitalizations. He takes no medications except an occasional ibuprofen. He does not smoke. He rarely drinks alcohol. No recreational drug use. Review of Systems Narrative: Patient reports he has been generally doing well up until the last few days when he has noted that he just does not quite feel right and both legs but especially his right leg has been bothering him and more swollen. [facility] Medical History (Updated 03/12/23 @ 00:18 by Christoph Martin MD) Chronic kidney disease ?N18.9 - Chronic kidney disease, unspecified (ICD-10) Morbid obesity ?E66.01 - Morbid (severe) obesity due to excess calories (ICD-10) Family History (Updated 03/12/23 @ 00:08 by Christoph Martin MD) Father Coronary artery disease Mother Diabetes Other Alcohol dependence Social History (Updated 03/12/23 @ 00:09 by Christoph Martin MD) Narrative: Patient reports being currently unemployed. 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 He does not smoke. He rarely drinks alcohol. He does not use recreational drugs. Healthcare power of criminal attorney is his mother. Code status is full. Smoking Status: Never smoker How often do you have a drink containing alcohol: never AUDIT-C Alcohol total score: 0 Non-prescribed substance use: denies use Meds Home Medications and Allergies Home Medications Medication Instructions Recorded Confirmed Type No Known Home Medications 03/11/23 03/11/23 History Allergies Allergy/AdvReac Type Severity Reaction Status Date / Time naproxen [From Aleve] Allergy Intermediate Verified 03/11/23 17:59 Exam Narrative: Exam Narrative: He is alert and able to give his own history. Appears to have scleral icterus. Oropharynx with very small airway. Neck is supple. Due to obesity cannot appreciate jugular veins. Respirations are clear to auscultation. Cardiovascular: S1, S2, regular tachycardia. Distant heart sounds. Abdomen: Large abdominal pannus. Bowel sounds are present. Palpation shows no obvious focus of tenderness. Some erythema in the left intertriginous area under his pannus. Extremities with bilateral 4+ edema and erythema and warmth on the right leg from the thigh to the foot and no erythema or warmth on the left. Bilateral pedal pulses are present Const: Vital Signs, click to edit/add: Vital Signs - 24 hr 03/11/23 17:53 03/11/23 18:35 03/11/23 18:36 Temperature 97.9 F Pulse Rate 93 92 Pulse Rate [Pulse Oximeter] 102 H Respiratory Rate 20 Blood Pressure 108/37 L Blood Pressure [Ri ght Upper Arm] 135/45 L Pulse Oximetry 99 100 99 Oxygen Delivery Me thod Room Air 03/11/23 18:45 03/11/23 19:12 03/11/23 19:15 Temperature Pulse Rate 94 93 92 Pulse Rate [Pulse Oximeter] Respiratory Rate Blood Pressure Blood Pressure [Ri ght Upper Arm] Pulse Oximetry 100 100 99 Oxygen Delivery Me thod 03/11/23 19:30 03/11/23 19:33 03/11/23 19:45 Temperature Pulse Rate 90 93 88 Pulse Rate [Pulse Oximeter] Respiratory Rate Blood Pressure 113/36 L Blood Pressure [Ri ght Upper Arm] Pulse Oximetry 100 98 99 Oxygen Delivery Me thod 03/11/23 20:00 03/11/23 20:03 03/11/23 20:15 Temperature Pulse Rate 93 93 91 Pulse Rate [Pulse Oximeter] Respiratory Rate Blood Pressure 114/39 L Blood Pressure [Ri ght Upper Arm] Pulse Oximetry 98 99 98 Oxygen Delivery Me thod 03/11/23 20:30 03/11/23 20:32 03/11/23 20:45 Temperature Pulse Rate 91 91 96 Pulse Rate [Pulse Oximeter] Respiratory Rate Blood Pressure 111/33 L Blood Pressure [Ri ght Upper Arm] Pulse Oximetry 99 99 98 Oxygen Delivery Me thod 03/11/23 21:03 03/11/23 21:04 03/11/23 21:06 Temperature Pulse Rate 94 94 93 Pulse Rate [Pulse Oximeter] Respiratory Rate Blood Pressure 117/34 L 99/40 L Blood Pressure [Ri ght Upper Arm] Pulse Oximetry 98 99 99 Oxygen Delivery Me thod 03/11/23 21:09 03/11/23 21:13 03/11/23 21:15 Temperature Pulse Rate 97 98 94 Pulse Rate [Pulse Oximeter] Respiratory Rate Blood Pressure 101/34 L 108/40 L Blood Pressure [Ri ght Upper Arm] Pulse Oximetry 100 99 99 Oxygen Delivery Me thod 03/11/23 21:16 03/11/23 21:35 03/11/23 21:40 Temperature Pulse Rate 94 103 H Pulse Rate [Pulse Oximeter] Respiratory Rate Blood Pressure 108/34 L 131/55 L Blood Pressure [Ri ght Upper Arm] Pulse Oximetry 99 99 Oxygen Delivery Me thod 03/11/23 21:45 03/11/23 21:48 03/11/23 22:11 Temperature Pulse Rate 99 96 94 Pulse Rate [Pulse Oximeter] Respiratory Rate Blood Pressure 135/46 L Blood Pressure [Ri ght Upper Arm] Pulse Oximetry 100 99 98 Oxygen Delivery Me thod 03/11/23 22:15 03/11/23 22:20 03/11/23 22:30 Temperature Pulse Rate 97 95 93 Pulse Rate [Pulse Oximeter] Respiratory Rate Blood Pressure 104/40 L Blood Pressure [Ri ght Upper Arm] Pulse Oximetry 97 98 99 Oxygen Delivery Me thod 03/11/23 22:32 03/11/23 22:45 03/11/23 22:48 Temperature Pulse Rate 92 91 92 Pulse Rate [Pulse Oximeter] Respiratory Rate Blood Pressure 103/32 L 114/38 L Blood Pressure [Ri ght Upper Arm] Pulse Oximetry 99 98 99 Oxygen Delivery Me thod 03/11/23 23:00 03/11/23 23:03 Temperature Pulse Rate 93 96 Pulse Rate [Pulse Oximeter] Respiratory Rate Blood Pressure 115/36 L Blood Pressure [Ri ght Upper Arm] Pulse Oximetry 100 99 Oxygen Delivery Me thod Documenting provider has reviewed patient's vital signs: yes Labs Labs: Short CBC 03/11/23 Range/Units 19:00 WBC 19.82 H (4.50-11.00) K/uL Hgb 12.7 L (13.5-17.5) gm/dL Hct 39.2 (37.0-53.0) % Plt Count 116 L (140-440) K/uL BMP 03/11/23 19:00 Sodium 125 L Potassium 4.3 Chloride 93 L Carbon Dioxide 13 L BUN 19 Creatinine 2.4 H Glucose 53 L Calcium 7.7 L Cardiac Enzymes 03/11/23 Range/Units 19:00 Total Creatine Kinase 641 H (54-186) U/L Troponin I 0.34 H* (0.01-0.04) ng/mL Liver Function 03/11/23 Range/Units 19:00 Total Bilirubin 9.1 H (0.1-1.5) mg/dL Direct Bilirubin 5.3 H (0.0-0.5) mg/dL AST 141 H (12-35) U/L ALT 49 (4-50) U/L Alkaline Phosphatase 179 H (40-150) U/L Albumin 2.4 L (3.3-5.0) g/dL Urine 03/11/23 Range/Units 22:22 Urine Color Red A (Yellow) Urine Appearance Slightly Cloudy A (Clear) Urine pH 5.0 (5.0-8.5) Ur Specific [place] >= 1.030 (1.000-1.030) Urine Protein 2+ A (Negative) Urine Glucose (UA) Negative (Negative) Assessment and Plan Assessment and plan (1) Sepsis: Problem comment: Continuing hypotension after 3 L of fluid. Suspect this is due to infection, probably cellulitis of the right leg Status: Acute (2) Cellulitis: Problem comment: Appears to have cellulitis of the right leg. Ultrasound showed no DVT Status: Acute (3) Morbid obesity: Problem comment: Patient has not been weighed for more than 20 years. ER weight is an estimate from 1998. Status: Acute (4) Jaundice: Problem comment: Elevated bilirubin. Cause possibly sepsis verses primary hepatobiliary disease. Status: Acute (5) Chronic kidney disease: Problem comment: Creatinine 2.4. Unknown how chronic this is. Possibly acute kidney injury due to sepsis Status: Acute (6) Elevated troponin: Problem comment: Elevated troponin more likely due to sepsis than acute coronary syndrome. Demand ischemia most likely. Status: Acute (7) Hypoglycemia: Problem comment: Cause for hypoglycemia is possibly sepsis or adrenal insufficiency or both. Status: Acute (8) Hyponatremia: Problem comment: Due to sepsis, adrenal insufficiency and a large amount of recent free water intake. Status: Acute Plan Patient is seen in the emergency department for evaluation for admission for sepsis likely due to leg cellulitis as well as multiple other comorbid conditions. Consultation is provided today to advise on emergency management as well as decision about admission. Patient is administered IV fluids including dextrose containing fluids due to hypo glycemia. His pressure improves. Hydrocortisone is administered. Antibiotics are initiated. Due to multiorgan involvement and morbid obesity with potential for severe complications including septic shock requiring pressors I recommend patient be transferred to tertiary care. If unable to transfer due to no beds being available will attempt to manage his critical illness here in [facility] pending in open bed. Total time spent today is 90 minutes in critical care evaluation and treatment in the emergency department
--- NOTE | 2023-03-12 00:07 | ED.NURSE ---
patient accepted at [id number]. Report given to Fela WOOD.
[2023-03-12 00:26] LABS: Lactate* 8.6 mmol/L (0.5-1.9)
[2023-03-12] MEDS: 5 % DEXTROSE IN LAC RINGER'S 1,000 ML 250 ML IV (00:41)
[2023-03-12] MEDS: ENOXAPARIN 30 MG/0.3ML INJ SUBCUT (00:41)
[2023-03-12] MEDS: 0.9 % SODIUM CHLORIDE 1000 ml 1,000 ML IV (00:44)
--- NOTE | 2023-03-12 02:38 | ED.NURSE ---
patient report given to EMS. Patient transfered to EMS truck. Melissa WOOD at [facility] updated that patient enroute to her.
== END 2023-03-12 02:43 | disposition short-term general hospital (02) ==
PROVIDERS: Family Medicine; Emergency Provider Family Medicine
DX: L03.116 Cellulitis of left lower limb; L03.115 Cellulitis of right lower limb
CPT/HCPCS: 36415; 71045; 80048; 80076; 81001; 82550; 82803; 82962; 83036; 83605; 83735; 83880; 84145; 84484; 85025; 85379; 86140; 87040; 87086; 93005; 93970; 94761; 96365; 96366; 96375; 99284; 99291; J1650; J1720; J2543; J3370; J7030; J7042; J7120